=== PATIENT | female | born 1965 | race Caucasian/White ===

== ENCOUNTER 2018-04-26 12:57 | Emergency (ER) | payer SELFPAY ==
[2018-04-26 13:42] VITALS: BP 98/69
--- NOTE | 2018-04-26 14:46 | RAD ---
INDICATION: Right foot swelling. TECHNIQUE: 3 views of the right foot were obtained. FINDINGS: There is mild diffuse soft tissue swelling. No fracture is seen. There are calcific densities which project lateral to the first metatarsal. IMPRESSION: 1. NO EVIDENCE FOR FRACTURE. 2. THERE ARE CALCIFIC DENSITIES WHICH PROJECT LATERAL TO THE FIRST METATARSAL. IF THIS IS THE REGION OF THE PATIENT'S SWELLING AND IS PERSISTENT CONSIDER MR IMAGING FOR FURTHER EVALUATION.
--- NOTE | 2018-04-26 18:08 | UC ---
Michael Jerry Jade, scribed for Rd Bell MD on 04/26/18 at 1506 . Lower Extremity/Ankle HPI - HPI Summary HPI Summary: Pt is a 53 y/o female who [place] [facility] [place] right foot pain. 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 When she got home, her feet felt heavy, and when she removed her laced shoes her right foot became suddenly swollen and painful. Her left foot also hurt, but the swelling and pain resolved after 5 hours. She states the swelling of her right foot has resolved somewhat, but still is very painful. The pain is described an 8/10 in severity, and as both aching and pressure. Pt states she cannot bend her toes backwards. The pain is the worst underneath her big toe going down the arch of her foot. Pt denies any ankle pain, injury, or fall. - History of Current Complaint Chief Complaint: UCLowerExtremity Stated Complaint: FOOT INJURY Time Seen by Provider: 04/26/18 14:43 Hx Obtained From: Patient Onset/Duration: Gradual Onset, Lasting Days - 5 Severity Currently: Severe Pain Intensity: 8 Pain Scale Used: 0-10 Numeric Aggravating Factor(s): Standing Able to Bear Weight: No - Allergies/Home Medications Allergies/Adverse Reactions: Allergies Allergy/AdvReac Type Severity Reaction Status Date / Time cats Allergy Eyes Uncoded 11/06/15 11:10 Itchy/Swollen/Red/Watery PMH/Surg Hx/FS Hx/Imm Hx Endocrine History: Hypothyroidism, Other - NEGATIVE: diabetes Other Endocrine History: . Neurological History: Migraine - Surgical History Surgical History: Yes Surgery Procedure, Year, and Place: 1996 myomectomy fibroid tumor removed - Family History Known Family History: Negative: Diabetes - Social History Alcohol Use: None Substance Use Type: None Smoking Status (MU): Never Smoked Tobacco Review of Systems Constitutional: Negative - Fever Motor: Decreased ROM - Cannot bend right toes backwards Musculoskeletal: Negative - Right ankle pain, Myalgia - Right foot pain, especially bottom of foot (arch) All Other Systems Reviewed And Are Negative: Yes Physical Exam - Summary Physical Exam Summary: General: well-appearing, no pain distress Skin: warm, color reflects adequate perfusion, dry. No skin break. Head: normal Eyes: EOMI, MARY ENT: normal Neck: supple, nontender Respiratory: CTA, breath sounds present Cardiovascular: RRR. Positive dorsalis pedis and posterior tibial pulses. Normal capillary refill. Abdomen: soft, nontender Bowel: present Musculoskeletal: Right foot swollen distally. Exquisitely tender on plantar aspect of the right foot. Ankle full ROM. Decreased ROM of right toes secondary to pain. Neurological: sensory/motor intact, A&O x3 Psychological: affect/mood appropriate Triage Information Reviewed: Yes Vital Signs: Initial Vital Signs Temp 98.2 F 04/26/18 13:36 Pulse 60 04/26/18 13:36 Resp 18 04/26/18 13:36 BP 98/69 04/26/18 13:36 Pulse Ox 98 04/26/18 13:36 Vital Signs Reviewed: Yes Diagnostics - Radiology Foot XR Xray Interpretation: Positive (See Comments) - 14:20: 1. NO EVIDENCE FOR FRACTURE. 2. THERE ARE CALCIFIC DENSITIES WHICH PROJECT LATERAL TO THE FIRST METATARSAL. IF THIS IS THE REGION OF THE PATIENT'S SWELLING AND IS PERSISTENT CONSIDER MR IMAGING FOR FURTHER EVALUATION. physician reviewed radiology report. Radiology Interpretation Completed By: Radiologist Lower Extremity Course/Dx - Course Course Of Treatment: DISCUSSED X-RAY RESULTS WITH THE PATIENT. WILL TREAT PLANTAR FASCIITIS WITH F/U WITH PODIATRY OR ORTHOPEDICS. RETURN FOR RECHECK SOONER IF NEEDED. - Differential Dx/Diagnosis Provider Diagnoses: RIGHT FOOT Plantar Fasciitis AND TENDONITIS Discharge - Sign-Out/Discharge Documenting (check all that apply): Discharge/Admit/Transfer - Discharge - Discharge Plan Condition: Stable Disposition: HOME Patient Education Materials: Plantar Fasciitis Exercises (GEN), Plantar Fasciitis (ED), Tendinitis (ED) Referrals: [facility] [Provider Group] [facility] [Outside] Franci Moseley [Primary Care Provider] - Ellis López MD [Medical Doctor] - Additional Instructions: FOLLOW UP WITH ORTHOPEDICS OR PODIATRY. GET RECHECKED FOR ANY WORSENING OF YOUR CONDITION OR QUESTIONS OR CONCERNS. - Billing Disposition and Condition Condition: STABLE Disposition: Home The documentation as recorded by the Michael salter Jade accurately reflects the service I personally performed and the decisions made by me, Rd Bell MD.
== END 2018-04-26 15:22 | disposition home or self-care (01) ==
LOC: UCEAST 12:57
DX: M72.2 Plantar fascial fibromatosis (principal); M77.9 Enthesopathy, unspecified; E03.9 Hypothyroidism, unspecified
CPT/HCPCS: 99211; G0463